=== PATIENT | female | born 1970 | race Caucasian/White ===

== ENCOUNTER 2024-08-04 15:17 | Observation (INO) | payer SELFPAY ==
[~2024-08-04] VITALS: Ht 167.6 cm; Wt 60.5 kg
[~2024-08-04 15:17] MED LIST: Thiamine 100 MG TAB PO SCH
[2024-08-04] MEDS ORDERED: LEVOTHYROXIN0.088 MG PO (15:39)
[2024-08-04] MEDS ORDERED: PROTONIX20 M1 (15:40)
[2024-08-04] MEDS ORDERED: QBRELIS1 MG/1 ML PO (15:40)
[2024-08-04] MEDS ORDERED: HYDROCHLOROTH12.5 M1 PO (15:40)
[2024-08-04] MEDS ORDERED: NS 1,000 ML IV SCH ×3 (15:45→18:45)
[2024-08-04] MEDS ORDERED: Ondansetron 4 MG/2 ML VIAL IV ONE (15:45)
[2024-08-04 16:05] LABS: BASO # 0.03 K/mm3 (0.02-0.10); EOS # 0.14 K/mm3 (0.04-0.40); EOS % 3.5 % (1.0-5.0); HEMATOCRIT 32.1 % (37.0-47.0); HEMOGLOBIN 10.7 g/dL (12.5-16.0); LYMPH# 0.62 K/mm3 (1.50-4.00); MEAN CELL VOLUME 110 fl (78-100); MEAN CORPUSCULAR HEMOGLOBIN 37 pg (27-31); MEAN CORPUSCULAR HGB CONC 33 g/dL (33-37); MEAN PLATELET VOLUME 9.7 fl (7.4-10.4); MONO # 0.44 K/mm3 (0.20-0.80); NEU # 2.77 K/mm3 (1.40-6.50); RED BLOOD COUNT 2.93 M/mm3 (4.10-5.30); RED CELL DISTRIBUTION WIDTH 13.8 % (11.5-14.5)
[2024-08-04 16:06] LABS: ALBUMIN 3.6 g/dL (3.5-5.0)
[2024-08-04 16:08] LABS: CALCIUM 8.7 mg/dL (8.3-10.5)
[2024-08-04 16:09] LABS: TOTAL PROTEIN 6.7 g/dL (6.4-8.3)
[2024-08-04 16:11] LABS: TOTAL BILIRUBIN 1.2 mg/dL (0.2-1.2)
[2024-08-04 16:13] LABS: PH-URINE 5.5 (5.0 - 8.0); URINE APPEARANCE CLEAR (CLEAR); URINE BILIRUBIN 2+ (NEGATIVE); URINE BLOOD NEGATIVE (NEGATIVE); URINE COLOR YELLOW (YELLOW); URINE GLUCOSE NEGATIVE (NEGATIVE); URINE KETONE 1+ (NEGATIVE); URINE LEUKOCYTE ESTERASE NEGATIVE (NEGATIVE); URINE MUCUS PRESENT (NOT PRESENT); URINE NITRATE NEGATIVE (NEGATIVE); URINE PROTEIN(semi-quant) 1+ (NEGATIVE)
[2024-08-04 16:17] LABS: PROTHROMBIN TIME 12.7 SECONDS (9.0-12.0)
[2024-08-04 16:28] LABS: PLATELET COUNT 86 K/mm3 (130-400)
[2024-08-04] MEDS ORDERED: Iohexol 300 - 100 ML VIAL IV ONE (17:01)
[2024-08-04] MEDS ORDERED: NS 100 ML IV SCH (17:02)
[2024-08-04] MEDS ORDERED: Bisacodyl 5 MG TAB PO PRN (18:30)
[2024-08-04] MEDS ORDERED: Acetaminophen 325 MG TAB PO PRN (18:30)
[2024-08-04] MEDS ORDERED: Ondansetron 4 MG/2 ML VIAL IV PRN (18:30)
[2024-08-04 19:37] VITALS: BP 95/62
[2024-08-04] MEDS ORDERED: LORazepam 2 MG/ML VIAL IV PRN (19:45)
[2024-08-04] MEDS ORDERED: Loperamide 2 MG CAP PO PRN (19:45)
[2024-08-04] MEDS ORDERED: Mag/Al Hydrox/Simeth Susp 30 ML CUP PO PRN (19:45)
[2024-08-04 21:20] VITALS: BP 101/64
[2024-08-04] MEDS ORDERED: Dextrose/Magnesium Sulfate 100 ML IV ONE (21:30)
[2024-08-04 22:00] VITALS: BP 93/68
[2024-08-04 23:04] VITALS: BP 91/60
[2024-08-05] VITALS (23 sets, daily range): BP systolic 66–118; BP diastolic 53–85
[2024-08-05] MEDS ORDERED: NS 1,000 ML IV SCH (02:15)
[2024-08-05] MEDS ORDERED: Multivitamin TAB PO SCH (08:00)
[2024-08-05 08:13] LABS: HEMATOCRIT 25.7 % (37.0-47.0); HEMOGLOBIN 8.7 g/dL (12.5-16.0); MEAN CELL VOLUME 109 fl (78-100); MEAN CORPUSCULAR HEMOGLOBIN 37 pg (27-31); MEAN CORPUSCULAR HGB CONC 34 g/dL (33-37); MEAN PLATELET VOLUME 9.8 fl (7.4-10.4); PLATELET COUNT 69 K/mm3 (130-400); RED BLOOD COUNT 2.36 M/mm3 (4.10-5.30); RED CELL DISTRIBUTION WIDTH 13.8 % (11.5-14.5); WHITE BLOOD COUNT 2.8 K/mm3 (4.8-10.8)
[2024-08-05 08:19] LABS: ALBUMIN 2.9 g/dL (3.5-5.0)
[2024-08-05 08:20] LABS: CALCIUM 7.4 mg/dL (8.3-10.5)
[2024-08-05 08:21] LABS: TOTAL PROTEIN 5.2 g/dL (6.4-8.3)
[2024-08-05 08:23] LABS: TOTAL BILIRUBIN 1.2 mg/dL (0.2-1.2)
[2024-08-05] MEDS ORDERED: Magnesium Oxide 400 MG TAB PO SCH (08:24)
[2024-08-05] MEDS ORDERED: Dextrose/Magnesium Sulfate 100 ML IV SCH (08:30)
[2024-08-05] MEDS ORDERED: Lisinopril 20 MG TAB PO SCH (09:00)
[2024-08-05] MEDS ORDERED: hydroCHLOROthiazide 25 MG TAB PO SCH (09:00)
[2024-08-05] MEDS ORDERED: Folic Acid 1 MG TAB PO SCH (09:00)
[2024-08-05] MEDS ORDERED: Loratadine 10 MG TAB PO SCH (09:00)
[2024-08-05 09:04] LABS: LYMPHOCYTE 14 % (20-51); MONOCYTE 6 % (3-10); NEUTROPHILS 76 % (42-75)
[2024-08-06 00:07] VITALS: BP 103/77
[2024-08-06 02:00] VITALS: BP 102/69
[2024-08-06 04:09] VITALS: BP 110/79
[2024-08-06 05:37] LABS: BASO # 0.03 K/mm3 (0.02-0.10); EOS # 0.12 K/mm3 (0.04-0.40); EOS % 4.1 % (1.0-5.0); HEMATOCRIT 25.2 % (37.0-47.0); HEMOGLOBIN 8.6 g/dL (12.5-16.0); LYMPH# 0.58 K/mm3 (1.50-4.00); MEAN CELL VOLUME 107 fl (78-100); MEAN CORPUSCULAR HEMOGLOBIN 37 pg (27-31); MEAN CORPUSCULAR HGB CONC 34 g/dL (33-37); MONO # 0.26 K/mm3 (0.20-0.80); NEU # 1.94 K/mm3 (1.40-6.50); RED BLOOD COUNT 2.35 M/mm3 (4.10-5.30); RED CELL DISTRIBUTION WIDTH 13.5 % (11.5-14.5)
[2024-08-06 05:48] LABS: ALBUMIN 2.7 g/dL (3.5-5.0)
[2024-08-06 05:49] LABS: CALCIUM 8.2 mg/dL (8.3-10.5)
[2024-08-06 05:51] LABS: TOTAL PROTEIN 4.9 g/dL (6.4-8.3)
[2024-08-06 05:52] LABS: TOTAL BILIRUBIN 1.1 mg/dL (0.2-1.2)
[2024-08-06 05:59] LABS: PLATELET COUNT 73 K/mm3 (130-400)
[2024-08-06 06:09] VITALS: BP 100/66
[2024-08-06] MEDS ORDERED: MAGNESIUM OXID400 MG PO (07:08)
[2024-08-06 08:12] VITALS: BP 120/83
== END 2024-08-06 09:30 | disposition home or self-care (01) ==
LOC: ED 15:17 → MED/SURG 17:44
PROVIDERS: Family Medicine; ADMIT Physician Assistant
DX: R74.01 Elevation of levels of liver transaminase levels (principal); R74.8 Abnormal levels of other serum enzymes; E87.20 Acidosis, unspecified; N17.9 Acute kidney failure, unspecified; I95.9 Hypotension, unspecified; K76.0 Fatty (change of) liver, not elsewhere classified; F17.210 Nicotine dependence, cigarettes, uncomplicated; F10.10 Alcohol abuse, uncomplicated; Z71.41 Alcohol abuse counseling and surveillance of alcoholic; Y90.5 Blood alcohol level of 100-119 mg/100 ml; Z79.899 Other long term (current) drug therapy
CPT/HCPCS: G0378; J3475; J7030; J7120; Q9967